=== PATIENT | male | born 1945 | race Caucasian/White ===

== ENCOUNTER 2020-11-06 15:54 | Emergency (ER) | payer OTHER ==
[~2020-11-06] VITALS: Ht 175.3 cm; Wt 81.2 kg
[2020-11-06 17:13] VITALS: BP 138/57
[2020-11-06 17:43] LABS: ABSOLUTE NEUTROPHILS 3.7 thou/uL (1.4-8.2); BASOPHILS 0.3 % (0.0-2.0); EOSINOPHILS 0.6 % (0.0-3.0); HEMATOCRIT 39.4 % (42.0-52.0); HEMOGLOBIN 12.8 gm/dL (14.0-18.0); LYMPHOCYTES 17.5 % (24.0-44.0); MCH 30.7 pg (26.0-34.0); MCHC 32.6 g/dL (28.0-37.0); MCV 94.3 fL (80.0-100.0); MONOCYTES 9.9 % (1.0-8.0); POLYS 71.7 % (36.0-66.0); RBC 4.17 mil/uL (4.50-6.00); RDW 16.7 % (10.5-14.5); WBC 5.1 thou/uL (4.0-11.0)
[2020-11-06 17:54] LABS: ANION GAP 7 mmol/L (7-16); BUN 25 mg/dL (7-18); CALCIUM 8.8 mg/dL (8.5-10.1); CHLORIDE 107 mmol/L (98-107); CO2 29 mmol/L (21-32); CREATININE 0.8 mg/dL (0.7-1.3); GLUCOSE 118 mg/dL (74-106); POTASSIUM 4.1 mmol/L (3.5-5.1); SODIUM 143 mmol/L (136-145)
[2020-11-06 17:58] LABS: ALBUMIN 3.6 g/dL (3.4-5.0); SGOT 15 U/L (15-37); SGPT 17 U/L (16-63); TOTAL BILIRUBIN 0.6 mg/dL (0.2-1.0); TOTAL PROTEIN 6.5 g/dL (6.4-8.2)
[2020-11-06 17:59] LABS: SALICYLATE < 2.8 mg/dL (2.8-20.0)
[2020-11-06 18:06] LABS: INR 1.9; PROTIME 19.8 Seconds (9.3-11.4)
[2020-11-06 18:30] LABS: PLATELET COUNT 106 thou/uL (150-400)
[2020-11-06 18:47] LABS: URINE BILIRUBIN NEGATIVE (Negative); URINE BLOOD NEGATIVE (Negative); URINE CLARITY CLEAR; URINE COLOR YELLOW; URINE GLUCOSE-RANDOM* NEGATIVE (Negative); URINE KETONES NEGATIVE (Negative); URINE LEUKOCYTES-REFLEX NEGATIVE (Negative); URINE NITRITE-REFLEX NEGATIVE (Negative); URINE PROTEIN (DIPSTICK) NEGATIVE (Negative); URINE SPECIFIC GRAVITY 1.015 (1.005-1.035)
[2020-11-06 18:56] LABS: AMP/METHAMP Negative (Negative); BARBITURATES Negative (Negative); BENZODIAZEPINES Negative (Negative); COCAINE Negative (Negative); METHADONE Negative (Negative); OPIATES Negative (Negative); PCP Negative (Negative)
[2020-11-06] MEDS ORDERED: WARFARIN SODIUM5 MG PO (19:53)
[2020-11-06] MEDS ORDERED: ZINC50 MG PO (19:54)
[2020-11-06] MEDS ORDERED: JANTOVEN6 MG PO (19:54)
[2020-11-06] MEDS ORDERED: ACETAMINOPHEN325 MG PO (19:55)
[2020-11-06] MEDS ORDERED: CLONAZEPAM 0.50.5 M1 PO (19:55)
[2020-11-06] MEDS ORDERED: OXYBUTYNIN 5 MG5 M2 PO (20:01)
[2020-11-06] MEDS ORDERED: PROTONIX40 M2 PO (20:02)
[2020-11-06] MEDS ORDERED: RAMIPRIL5 MG PO (20:02)
[2020-11-06] MEDS ORDERED: CARAFATE 1 GM TA1 GM PO (20:03)
[2020-11-06] MEDS ORDERED: TAMSULOSIN HCL0.4 MG PO (20:03)
[2020-11-06] MEDS ORDERED: SILDENAFIL20 MG PO (20:03)
[2020-11-06] MEDS ORDERED: VITAMIN D310 MC2 PO (20:04)
[2020-11-06] MEDS ORDERED: VITAMIN B-1100 M2 PO (20:04)
[2020-11-06] MEDS ORDERED: VITAMIN B122500 MCG PO (20:05)
[2020-11-06] MEDS ORDERED: CRANBERRY450 M2 PO (20:05)
[2020-11-06] MEDS ORDERED: ESCITALOPRAM OXA5 MG PO (20:06)
[2020-11-06] MEDS ORDERED: FOLIC ACID1 MG PO (20:06)
[2020-11-06] MEDS ORDERED: PEPCID40 MG PO (20:06)
[2020-11-06] MEDS ORDERED: NAMENDA 10 MG T10 MG PO (20:07)
[2020-11-06] MEDS ORDERED: MAGNESIUM250 M1 PO (20:07)
--- NOTE | 2020-11-07 06:56 | EKG ---
[address] [place] [address] ELECTROCARDIOGRAM REPORT Name: CORBIN LEVIN Room #: DEP SHWETA Perdue#: [id number] Admission: 11/06/20 Attend Phys: Discharge: 11/06/20 Date of : 43 Report #: [id number] [facility] ED Test Date: 2020-11-06 Test Time: 17:35:04 Pat Name: CORBIN LEVIN Department: Room: Gender: M Programmer Engineering [employer]: : 1945 Requested By: Rocky Bonilla Order Number: [id number] MD: Madhav Robertson Measurements Intervals [place] Rate: 54 P: 36 TX: 206 QRS: -40 QRSD: 98 T: 41 QT: 468 QTc: 444 Interpretive Statements Sinus rhythm Probable left atrial enlargement Abnormal R-wave progression, late transition Inferior infarct, old No previous ECG available for comparison Electronically Signed On 11-07-2020 6:56:02 LEATHER TANNER by Madhav Robertson [email or web address] <ELECTRONICALLY SIGNED> By: Madhav Robertson MD, [facility] 11/07/20 0656 [id number] Madhav Robertson MD, FACC /EPI
== END 2020-11-06 20:26 ==
LOC: ER 15:54
PROVIDERS: Physician Assistant
DX: F91.1 Conduct disorder, childhood-onset type (principal); F03.90 Unspecified dementia, unspecified severity, without behavioral disturbance, psychotic disturbance, mood disturbance, and anxiety; I10 Essential (primary) hypertension; Z79.01 Long term (current) use of anticoagulants; Z79.899 Other long term (current) drug therapy; Z20.822 Contact with and (suspected) exposure to COVID-19

== ENCOUNTER 2020-11-06 20:44 | Inpatient (IN) | payer OTHER ==
[~2020-11-06] VITALS: Ht 175.3 cm; Wt 72.2 kg
[2020-11-06 20:20] VITALS: BP 113/68
[~2020-11-06 20:44] MED LIST: ACETAMINOPHEN325 MG PO; CARAFATE 1 GM TA1 GM PO; CLONAZEPAM 0.50.5 M1 PO; CRANBERRY450 M2 PO; ESCITALOPRAM OXA5 MG PO; FOLIC ACID1 MG PO; JANTOVEN6 MG PO; MAGNESIUM250 M1 PO; NAMENDA 10 MG T10 MG PO; OXYBUTYNIN 5 MG5 M2 PO; PEPCID40 MG PO; PROTONIX40 M2 PO; RAMIPRIL5 MG PO; SILDENAFIL20 MG PO; TAMSULOSIN HCL0.4 MG PO; VITAMIN B-1100 M2 PO; VITAMIN B122500 MCG PO; VITAMIN D310 MC2 PO; WARFARIN SODIUM5 MG PO; ZINC50 MG PO
[2020-11-06 22:50] VITALS: BP 113/68
--- NOTE | 2020-11-07 04:18 | NUR ---
RECEIVED REPORT FROM RAÚL LAMBERT IN ED FOLLOWES VSS, RR EVEN AND NONLABORED ON RA. SECURITY WAS CALLED R/T PT BECOMING COMBATIVE BUT WAS ABLE TO DESLCATE SITUATION. PT ARRIVED 2019 ON UNIT AND RAÚL LAMBERT AND PT WAS REFUSING TO GET OUT OF CHAIR, PT BECAME AGITATED AND ESCLATED TO BEING COMBATIVE, THIS AUTOMATIC MOUNTER WENT TO CALL SECURITY, THEN PETRA EXITED DEPARTMENT. PT DPOA GAVE CONSENTS FOR TREATMENT. HCP CONTACTED AND ORDERS RECEIVED AND ADMIT STAT. ADMIT CONTACTED AND EXPERIMENTAL MECHANIC SPACECRAFT ADVISED. ORDERS ENTERED INTO SYSTEM AND IM DELIVERED WITH SECURITY HOLDING PT. PT SPECH CLEAR BUT WHISPER SOFT, PT BODY LANGUAGE WAS TENSE. PT CONFUSED BUT AAOX1, A LITTLE LATER PT WAS ASSISTED INTO BED AND COVERED WITH BLANKET. VS B/P 113/68, P 56, R 20, T 97.6, 02 SAT96% RR EVEN AND NONLABORED ON RA. LATER RECEIVED REPORT FROM HVAC PROJECT MANAGER THAT PT WAS WET, WHEN TRYING TO ASSIST PT BECAME COMBATIVE, SECURITY CALLED AND HCP CONTACTED AND ORDERS RECEIVED AND ADMIN, PT WET CLOTH WAS REMOVED AND PLACED IN CLEAN CLOTHS. OF NOTE, THIS IS A LIMITED ADMIT R/T COMBATIVE. PT WAS PLACED BACK IN BED. ZERO S/S OF ACUTE DISTRESS NOTED, PT WILL CONTINUE TO BE MONITOR PER [facility] PROTOCOL. PT HAS A HX DEMENTIA, HTN, POLYCYTHEMNA VERA, POLYARTHRALGIA, EXPOSURE TO AENT ORANGE.
[2020-11-07 08:06] VITALS: BP 127/68
--- NOTE | 2020-11-07 10:36 | NUR ---
Nutrition: pt admitted to [facility] unit with major neurocognitive disorder with behaviors. Received new admission consult. Pt is combative and confused. PMH: dementia, HTN, pulmonary HTN, valve replacement. Meds/labs reviewed. No weight hx however BMI is 25.3., overweight status. Diet order entered as NPO, alerted Dr Hernandez and regular diet order placed. Follow intake trends for any needed interventions but consider low nutrition risk at present.
[2020-11-07 20:05] VITALS: BP 137/77
[2020-11-08 02:45] VITALS: BP 137/77
--- NOTE | 2020-11-08 03:00 | NUR ---
ASSUMED CARE ON 11/07/20 @ 1900, UP IN A CHAIR IN THE DAY ROOM. a&oX2 RAMBLING ABOUT MISSIONS, SPEACH DOES NOT MATCH CURRENT EVENTS. TYLENOL 650 PROVIDED FOR BACK AND GENERAL PAIN. COOPERATES WITH ASSESSMENT AND MEDICATION ADMINISTRATION. BED IN LOW POSITION, BED LOCKED, BED ALARM SET, WILL CONTINUE TO MONITOR PER UNIT PROTOCOL FOR SAFETY AND COMFORT.
[2020-11-08 05:41] LABS: INR 1.7; PROTIME 18.1 Seconds (9.3-11.4)
--- NOTE | 2020-11-08 08:55 | NUR ---
PT WANDERING AROUND AFTER THE UNIT AND IN HIS ROOM. PT HAS MEDS IN CUPS AND ENCOURAGED PT TO TAKE MEDS. PT PUT PILLS IN HIS HAND AND WALKING AROUND, PUT MEDS BACK INTO CUP FROM HAND. PUT MEDS UP TO HIS MOUTH AND PT DID TAKE MEDS WITH WATER. VERY DIFFICULT TO GET PT TO FOCUS ON TAKING HIS MED. PT UP AD BENSON WITH STEADY GAIT.
[2020-11-08 09:00] VITALS: BP 141/78
[2020-11-08 10:21] VITALS: BP 141/78
--- NOTE | 2020-11-08 13:00 | NUR ---
PT DOES WALK AROUND THE UNIT AND LIKES TO FOLLOW PEOPLE INTO ROOMS. PT DOES OBSERVE OTHER INDIVIDUALS AND WATCHES THEM. PT CAN BE INTRUSIVE WITH GETTING CLOSE TO OTHERS.
--- NOTE | 2020-11-08 16:48 | NUR ---
ZEESHAN attempted to complete assessment with Pt however Pt unable to participate due to cognitive impairment. Zeeshan contacted Pt DPOA/ son, Porfirio [phone]. ZEESHAN was unable to speak with Porfirio but did leave a message for a call back. As of this note ZEESHAN has not recieved a call from Porfirio. ZEESHAN also reached out to [facility], [phone], both phone numbers went straight to a voice mail. ZEESHAN left a message for a call back. As of this note there has been no return call. ZEESHAN will continue to follow up.
--- NOTE | 2020-11-08 19:00 | NUR ---
PT DID TAKE MED WHOLE WITH WATER. PT ENCOURAGED TO DRINK REST OF WATER IN CUP.
[2020-11-08 20:20] VITALS: BP 141/78
--- NOTE | 2020-11-09 05:09 | NUR ---
PATIENT WAS UP WALKING AROUND IN THE DINING ROOM TONIGHT BEFORE BED. HE WALKS WITH A STEADY GAIT. HE BEGAN MASSAGING ANOTHER PATIENT'S SHOULDERS (FEMALE) AND REFUSED TO STOP OR LEAVE THE PATIENT ALONE. THE PATIENT WAS FEELING UNCOMFORTABLE AROUND HIM. SHE WAS IN A WC AND COULDN'T GET AWAY. PT BECAME COMBATIVE AND VERBALLY THREATENING TO HURT US ALL IF WE DIDN'T LET HIM DO WHAT HE WANTED. SECURITY CALLED AND CAME. GEODON 15MG IM GIVEN TO PATIENT AT 2054. PATIENT WAS ASSISTED TO BED WITHIN THE HOUR. HE WAS INCONTINENT AND HAD TO HAVE BED CHANGED. HE AWOKE AROUND 3AM AND WANTED UP. NURSE WALKED PATIENT THRU THE WHITLOCK AND ASSISTED HIM BACK TO HIS ROOM INTO THE BED. PT WENT BACK TO SLEEP. HE WAS AWAKENED FOR LAB DRAW AND BECAME COMBATIVE AND REFUSING LAB. THIS NURSE ASSISTED WITH THE LAB LADY AND PT WAS BECOMING MORE AGITATED. SUGGESTED THAT LAB COME BACK A LITTLE LATER. SHE STATES SHE WILL BE BACK AROUND 8AM TO RETRY LAB DRAW. PATIENT BACK TO SLEEP. CONTINUING TO MONITOR. BED IN LOW POSITION AND BED ALARM IS ON. NO SIGNS OF SI. DENIES PAIN. ROUTINE ROUNDS TO ASSESS SAFETY AND STATUS OF PATIENT.
[2020-11-09 08:40] VITALS: BP 137/76
[2020-11-09 09:11] LABS: ABSOLUTE NEUTROPHILS 3.9 thou/uL (1.4-8.2); BASOPHILS 0.4 % (0.0-2.0); HEMATOCRIT 44.3 % (42.0-52.0); HEMOGLOBIN 14.5 gm/dL (14.0-18.0); LYMPHOCYTES 14.8 % (24.0-44.0); MCH 31.2 pg (26.0-34.0); MCHC 32.7 g/dL (28.0-37.0); MCV 95.5 fL (80.0-100.0); MONOCYTES 8.9 % (1.0-8.0); PLATELET COUNT 115 thou/uL (150-400); POLYS 74.9 % (36.0-66.0); RBC 4.63 mil/uL (4.50-6.00); RDW 16.7 % (10.5-14.5); WBC 5.2 thou/uL (4.0-11.0)
[2020-11-09 09:16] VITALS: BP 137/76
[2020-11-09 09:35] LABS: INR 1.7; PROTIME 18.1 Seconds (9.3-11.4)
--- NOTE | 2020-11-09 10:00 | NUR ---
PT FINISHED BREAKFAST. HARD TO UNDERSTAND PT DUE TO WORD SALAD. PT SEEMS TO KNOW WHAT HE IS SAYING. PT TOOK MEDS WHOLE WITH WATER. PT LIKES TO HOLD PILLS IN HAND AND WALK AWAY. PT WANDERS AROUND UNIT AND LIKES TO FOLLOW OTHER WORKERS AND INVADE OTHERS SPACE.
--- NOTE | 2020-11-09 12:37 | NUR ---
PT NOT FOLLOWING DIRECTIONS FROM STAFF AND NEEDS REDIRECTED AWAY FROM OTHER PATIENTS, PT GETTING INCREASED AGITATED WITH REDIRECTION. TOOK PT TO ROOM WITH X2 OTHER STAFF AND ENCOURAGED PT TO SIT ON BED. PT ACCEPTED INJECTION OF GEODON 15MG IM TO RT DELTOID, PT ALSO HAS BRUISE TO RT UPPER ARM.
--- NOTE | 2020-11-09 13:30 | NUR ---
PT INCON OF URINE AND NEEDED CHANGED. PT ACCEPTED STAFF X2 TO ASSIST WITH CHANGING OF PANTS AND BRIEF.
--- NOTE | 2020-11-09 18:50 | NUR ---
PT ENCOURAGED TO SIT IN CHAIR. PT STATED HE IS GETTING TIRED, PT DID SIT IN CHAIR NEXT TO ANOTHER PATIENT. NO AGRESSION SEEN FROM PT TODAY JUST BEING INTRUSIVE AND NOT WANTING TO FOLLOW DIRECTION.
[2020-11-09 22:26] VITALS: BP 156/107
[2020-11-09 23:31] VITALS: BP 156/107
--- NOTE | 2020-11-10 01:15 | NUR ---
Assumed care on 11/09/20 @ 1900, ambulating throughout the mileu, intruding into other peer's personal space, changing chairs, over the bed tables etc. Also taking off peer's socks. Goes into peers rooms. When EVS was on the floor mopping, wouldn't leave the mop bucket alone, became agitated when redirected away from the bucket. Refused meds whole, offered a second time crushed in pudding and he accepted the crushed meds in pudding, then ate the rest of the pudding. @ 0030 became increasingly agitated, disturbing the other patients Given Geodon 15mg IM, within about 30 minutes was able to direct him to his room. Cleaned a scab on his forehead that he had picked and was bleeding, covered with bandaid. Laid down and is sleeping at this writing. Bed in low position, bed alarm set, will continue to monitor for safety and comfort.
[2020-11-10 08:00] VITALS: BP 122/76
[2020-11-10 11:31] VITALS: BP 122/76
--- NOTE | 2020-11-10 17:26 | NUR ---
Alert and confused. incooperative, irriatable. inappropriate behaviors towards other patients, especially towards female patients. does not follow staff's demands to leave other patients alone, security came to assist the staff to give IM Ziprasidone twice, that works. refused to eat for breakfast and lunch, took PO medication with some puddings. but finished 100% of dinner. Walking around the hallway now,will keep monitoring.
[2020-11-10 18:42] LABS: PROTIME 26.9 Seconds (9.3-11.4)
[2020-11-10 18:43] LABS: INR 2.6
[2020-11-10 19:49] VITALS: BP 142/86
[2020-11-11 05:46] LABS: INR 3.1; PROTIME 32.4 Seconds (9.3-11.4)
[2020-11-11 11:45] VITALS: BP 142/65
[2020-11-11 18:21] VITALS: BP 142/65
--- NOTE | 2020-11-11 18:27 | NUR ---
ASSUMED CARE AT 0700 TODAY. PT. STABLE. HE CONTINUES TO BE EXTREMELY CONFUSED, REQUIRING MUCH ATTENTION OF STAFF. HE WANDERS AIMLESSLY AROUND THE UNIT, SOME TIME NOT ANSWERING TO HIS OWN NAME. HE WAS NOTED TO BE HOLDINGING ONTO THE WALL BETWEEN THE DINING ROOM AND THE WHITLOCK FOR QUITE A PERIOD OF TIME TODAY (AT LEAST 35 MINUTES). HE HAS, HOWEVER, BEEN REDIRECTABLE. HE HAS NOT REQUIRED ANY PRN'S TODAY. HE IS EATING FAIR WITH ASSISTANCE OF STAFF. HE HAS TAKEN HIS MEDICATIONS CRUSHED IN PUDDING TODAY WITHOUT PROBLEMS NOTED. WILL CONTINUE TO MONITOR.
[2020-11-11 20:02] VITALS: BP 128/79
[2020-11-12 01:36] VITALS: BP 128/79
[2020-11-12 07:00] VITALS: BP 98/60
--- NOTE | 2020-11-12 07:51 | NUR ---
Assumed care on 11/11/20, ambulating ad dayami throughout the unit, intrusive and exit seeking. a&ox1-2, takes meds whole or crushed in applesauce. Geodon 15mg IM provided for combatitive episode and rough handling peers and staff @ 23:05. x3 staff and x2 security assisted.
--- NOTE | 2020-11-12 07:56 | NUR ---
AFSANEH Sharpe 15mg IM provided on 11/12/20 @ 0600, D/T wanda agitated and striking the Vehicle Refinisher trying to draw his PT/INR lab. Lab will attempt once patient becomes calm and cooperative.
[2020-11-12 09:10] LABS: INR 4.1; PROTIME 41.3 Seconds (9.3-11.4)
--- NOTE | 2020-11-12 15:13 | NUR ---
11/11 @ 1600 SW recieved a VM from Pt's , Chyna, requesting a call back. @1704 SW returned to call to Chyna, . Chyna stated she had some concerns about not hearing from anyone at the hospital. LAZARO explained that a call was made to Porfirio, Pt's son on 11/08 and a message was left but had not recieved a call back. LAZARO also informed that it was instructed to contact Porfirio. Chyna stated that was not correct and that she should be contacted as she is the DPOA. LAZARO will pass information to other team members. LAZARO begin to provide and update on the Pt when Chyna's phone disconnected. LAZARO attempted to call back with no sucess. LAZARO will follow up
--- NOTE | 2020-11-12 18:08 | NUR ---
ZEESHAN called Chyna to follow up. Zeeshan set up a family meeting for 11/13/2020 @ 1770. ZEESHAN also emailed welcome packect to [email or web address]
--- NOTE | 2020-11-12 18:20 | NUR ---
Alert to name only. Very sleepy today, spent most of day in gerichair. No speech/behavior suggestive of SI/HI. Compliant with meds given in apple sauce. Breath sounds clear. Reg HR with click auscultated. Color pink with brisk capillary refill and palpable peripheral pulses. Incontinent of yellow urine. Active bowel sounds over soft, rounded abdomen.
[2020-11-12 19:59] VITALS: BP 129/78
[2020-11-13 00:14] VITALS: BP 129/78
--- NOTE | 2020-11-13 02:12 | NUR ---
Assumed care on 11/12/20 @ 1900, A&Ox1 to person only. Seated in tate chair in the hallway adjacent to the nurses desk. Speaks out but does not speak in sentences, word salad speach patterns noted. Cooperated and took meds crushed in applesauce with water. Retired to bed x2 assist @ HS, and has been sleeping in bed with the bed alarm set, bed in low position. Rounding as per unit protocol. High fall risk, NKDA, DNR. Has not required PRN meds this evening.
[2020-11-13 05:54] LABS: HEMATOCRIT 41.8 % (42.0-52.0); HEMOGLOBIN 13.6 gm/dL (14.0-18.0); MCH 31.2 pg (26.0-34.0); MCHC 32.5 g/dL (28.0-37.0); RBC 4.36 mil/uL (4.50-6.00); RDW 17.1 % (10.5-14.5); WBC 5.4 thou/uL (4.0-11.0)
[2020-11-13 05:56] LABS: INR 4.3
[2020-11-13 10:12] VITALS: BP 113/76
--- NOTE | 2020-11-13 11:45 | NUR ---
Nutrition followup: pt remains on [facility] unit with major neurocognitive disorder with behaviors. No weight since admit. Pt not appropriate for interview. Speaks in word salad. Noted needed IM injections last night due to behaviors. Pt was eating 100% meals til 11/09 then po started varying from refusal to 100%. Family meeting today with planned D/C soon per Dr Hernandez. Will offer ensure once a day due to some meal refusals lately. REC obtain new weight. Continue as low nutrition risk for now and follow for improved po trends.
--- NOTE | 2020-11-13 13:08 | NUR ---
ZEESHAN and Dr. Velez participated in a phone call with Pt's , Chyna. An update was given, medications discussed, and discharge discussed. Zeeshan will fax updates to the facility. ZEESHAN will continue to follow
--- NOTE | 2020-11-13 19:38 | NUR ---
0700 ASSUMED CARE OF PATIENT, PATIENT IN DAYROOM AT THAT TIME. PATIENT SITTING IN FARTUN CHAIR QUIETLY. SOME ASSISTANCE WITH BREAKFAST. MEDICATIONS TAKEN WHOLE WITHOUT DIFFICULTY. PATIENT IN GERICHAIR WITH LAP SAM FASTENED IN FRONT. 1400 PATIENT HAS SOME INCREASE IN AGITATION. PATIENT UP WALKING AND WANDERING WHITLOCK. PO MEDICATION GIVEN FOR AGITATION CRUSHED IN APPLESAUCE. CONTINUES TO WANDER WHITLOCK WITH STEADY GAIT. BS ACTIVE, LS CLEAR. REPORT GIVEN TO ONCOMING SHIFT.
[2020-11-13 19:39] VITALS: BP 118/66
--- NOTE | 2020-11-14 03:03 | NUR ---
PACING IN HALLWAYS AND DAYROOM UPON INITIAL ASSESSMENT THIS PM AT 1945. INTRUSIVE-ENTERING PEERS ROOMS AND ATTEMPTING TO GET INTO OFFICES,STAFF BATHROOM ETC. DIFFICULT TO REDIRECT WILL NOT FOLLOW VERBAL COMMNANDS AND BECOMES AGITATED AND COMBATIVE WHEN STAFF ATTEMPTS TO TAKE HIS HAND OR ELBOW AND PHYSICALLY DIRECT. INITALLY RESISTVE WITH TAKING HS MEDS-REFUSING TO OPEN MOUTH-DID TAKE MEDS IN ICE CREAM WHEN REAPPROACHED LATER. AT APPROX. 2230 BECAME INTRUSIVE WITH A FEMALE PEER AND WHEN STAFF ATTEMPTED TO REDIRECT ATTEMPTED TO HIT HER WITH A CLOSED FIST AND WHEN 2ND STAFF APPROACHED WAS ATTEMPTING TO KICK AND HIT HER. IS MILDLY ATAXIC FROM HS MEDICATION BUT REFUSES TO SIT -MOVING TABLES AND CHAIR IN DAYROOM. ZYPREXA 7.5MG IM IN RIGHT DELTOID FOR ABOVE NOTED. APPEARS TO REST QUIETLY AT APPROX. 2300.PLACED IN GERICHAIR WITH LAP BELT SECURED IN FRONT AT APPROX. 2330.
--- NOTE | 2020-11-14 08:21 | NUR ---
RT Progress Note- Cristobal's participation in the milieu and recreation therapy groups is inconsistent. Cristobal primarily benefit's from sensory activity such as music groups and has been present during each group, but minimally engaged. He has not displayed any aggression during group time's, however he has required gentle redirection as he begins to wander at times and become instrusive of other patient's space. SHIPPING ROOM HELPER will continue to provide Cristobal with engaging activities on the unit.
[2020-11-14 09:06] LABS: INR 3.1; PROTIME 31.8 Seconds (9.3-11.4)
[2020-11-14 09:26] VITALS: BP 118/72
--- NOTE | 2020-11-14 14:11 | NUR ---
0700 ASSUMED CARE OF PATIENT, PATIENT AWAKE IN DAYROOM SITTING IN FARTUN CHAIR. PATIENT ASLEEP DURING BREAKFAST, 0900 MED NOT TAKEN AT THAT TIME PATIENT CONTINUES TO SLEEP AND WILL NOT WAKE UP FOR ASSOCIATE PROFESSOR OF COMMUNICATION. PATIENT GIVEN MEDS AT 0955 IN APPLESAUCE WITHOUT DIFFICULTY. SLEEPS IN CHAIR OFF AND ON. VS BP-118/72 P-74 R-20 T-98.0 SATS 90%. SATS RECHECKED 93% WILL CONTINUE TO OBSERVE.
[2020-11-14 19:52] VITALS: BP 125/76
--- NOTE | 2020-11-15 04:05 | NUR ---
INCONTINENT OF LARGE AMOUNT URINE-REQUIRED 4 STAFF TO CHANGE BRIEF,CLOTHING ,CLEAN CHAIR AND APPLY BARRIER CREAM SKIN PROTECTANT-YELLING OBSCENITIES AT STAFF AND ATTEMPTING TO HIT,KICK AND BITE THROUGHOUT INCONTINENT CARE.NO RESPONSE TO ATTEMPTS TO PROVIDE REASSURANCE,REORIENTATION OR REDIRECTION -SPIT IN NURSES FACE YELLING LOUDLY "GET AWAY FROM ME YOU GODDAMM WHORE"SOME SLIGHT REDNESS TO SCROTUM OTHERWISE SKIN APPEARS INTACT-NO OPEN AREAS.REPOSITIONED IN GERICHAIR-FLUIDS/SNACK PROVIDED.REMAINS RESTLESS IN CHAIR-WILL CONTINUE TO MONITOR ROSLYN.
[2020-11-15 09:00] VITALS: BP 136/72
[2020-11-15 09:40] VITALS: BP 136/72
--- NOTE | 2020-11-15 14:27 | NUR ---
Alert to name only. Denies SI/HI, no speech/behavior suggestive of SI/HI. Drowsy this AM but able to stand briefly. Currently ambulating around unit with assistance of of 2 relationship executive. Confused speech. When asked about pain he said yes but then had rambling, incoherent speech. Breath sounds clear. Reg HR auscultated. Color pink with brisk capillary refill and palpable peripheral pulses. Slight edema in ankles. Incontinent of large amt yellow urine per brief. Active bowel sounds over soft, rounded abdomen. Sat quietly in chair most of am, now ambulating in day room.
--- NOTE | 2020-11-15 20:27 | NUR ---
PT HAS BEEN WANDERING AROUND DINING ROOM AND SITTING ON HIS OWN IN CHAIRS. PT NEEDED ASSISTANCE WITH CHANGING PANTS/BRIEF. TAKES X2 PERSONS TO CHANGE, HE WANTS TO KEEP PULLING UP HIS PANTS. PT ALLOWED THIS INNOVATION ANALYST AND ANOTHER STAFF TO ASSIST WITH HIS PANTS. PT THEN WHEELED OUT VIA FARTUN-CHAIR IN DINING ROOM. PT TOOK MEDS WITHOUT ANY ISSUES CRUSHED TO CHOCOLATE PUDDING.
[2020-11-15 20:30] VITALS: BP 95/62
[2020-11-15 20:45] VITALS: BP 95/62
--- NOTE | 2020-11-16 04:52 | NUR ---
PT RESTING IN RECLINER CHAIR IN DINING ROOM. PT HAS NOT HAD ANY BEHAVIORS THIS SHIFT. PT ALLOWED STAFF TO CHANGE HIS BRIEF TONIGHT WITHOUT ANY ISSUES.
[2020-11-16 08:25] VITALS: BP 111/75
--- NOTE | 2020-11-16 18:33 | NUR ---
Alert and orientated to name only. Calm and compliant, took meds with apple sauce. Sat majority of day in tate chair. Able to stand with assistance, gait unsteady. Breath sounds clear. Reg HR auscultated. Color pink with brisk capillary refill and palpable peripheral pulses. Minimal edema in lower extremities. Incontinent of very large amt yellow urine. Active bowel sounds over soft, rounded abdomen. Currently sitting in day room with peers. No s/o distress.
[2020-11-16 19:59] VITALS: BP 113/70
[2020-11-16 20:10] VITALS: BP 113/70
--- NOTE | 2020-11-16 21:31 | NUR ---
PT SITTING OUT IN DINING ROOM IN FARTUN CHAIR. PT WITHDRAWN AND TO SELF. PT WILL CONVERSE WHEN SPOKEN TOO. PT NOT MAKING ANY SENCE WITH SENTANCES, WORD SALAD. PT DENIES ANY PAIN. PT TOOK MEDS CRUSHED IN PUDDING. PT DID LIKE THE PUDDING OFFERED WATER TO DRINK. PT KEEPS HEAD DOWN MOST OF THE TIME.
--- NOTE | 2020-11-17 03:25 | NUR ---
PT TOLERATED LAB DRAW AT THIS TIME. PT RESTING IN FARTUN-CHAIR, PT DIDN'T WAKE DURING IV STICK.
[2020-11-17 04:13] LABS: PROTIME 30.7 Seconds (9.3-11.4)
[2020-11-17 09:51] VITALS: BP 122/83
[2020-11-17 10:30] VITALS: BP 122/83
--- NOTE | 2020-11-17 10:37 | NUR ---
ASSUMED CARE OF PT. AT 0700 THIS MORNING. HE WAS COOPERATIVE WITH TAKING HIS MEDICATIONS. HE ATE SOME OF HIS BREAKFAST. NO AGRESSION NOTED FROM HIS TO THIS MOMENT IN TIME.
[2020-11-17 20:04] VITALS: BP 96/57
[2020-11-17 20:10] VITALS: BP 96/57
--- NOTE | 2020-11-18 04:06 | NUR ---
PATIENT WAS UP WALKING AROUND DINING ROOM THIS EVENING AND BEING HEAVILY WATCHED. HE SPOKE NONSENSICAL RAMBLINGS BUT SEEMED TO RELATE TO PAST WORK HE MAY HAVE DONE. HE WAS EASILY REDIRECTED. HE WAS NOT COMBATIVE TONIGHT WITH INCONTINENT CARES ME AND THE PROTEIN SPECIALIST WORKED WITH HIM SLOWLY AND ALLOWED HIM TO DO WHAT HE COULD TO HELP. WE EXPLAINED TO HIM STEP BY STEP WHAT WE WERE DOING AND CARRIED ON A CONVERSATION WITH HIM TO KEEP HIS MIND OFF OF THE SITUATION. PT HAS BEEN SLEEPING IN HIS BED SINCE. NO BEHAVIORS. ROUTINE ROUNDS TO ASSESS STATUS AND SAFETY OF PATIENT. HE DENIES PAIN. NO SIGNS OF SI/HI. HE DOES HAVE VISUAL HALLUCINATIONS AND SEE'S THINGS ON THE FLOOR THAT HE CALLS CLIFFS OR RIDGES AND ATTEMPTS TO GO AROUND OR STEP OVER THEM. HE HAD A CUP TONIGHT AND WAS HOLDING I UP UNDERNEATH A TABLE IF WATER WAS RUNNING INTO IT. PATIENT TOOK HIS MEDS CRUSHED IN PUDDING TONIGHT. BED IN LOW POSITION AND BED ALARM IS ON.
[2020-11-18 05:39] LABS: INR 2.7; PROTIME 27.9 Seconds (9.3-11.4)
[2020-11-18 10:37] VITALS: BP 94/54
--- NOTE | 2020-11-18 17:31 | NUR ---
LAZARO spoke Steffi on several occassions concerning discharge planning for the Pt. @11:36 am LAZARO spoke with Steffi and planned d/c for 11/19/2020 @ 1300. LAZARO then called Pt's , Chyna, concerning the matter. Chyna stated she would not be avaliable to transport the Pt and asked if Pt could be d/c today. 11:50am Lazaro spoke with Steffi concerning d/c today Steffi informed the facility did not have the nursing staff to accept the Pt today. LAZARO relayed this information to Chyna. Chyna stated she could pick the Pt up on 11/19/2020 @ 11am to make it to [facility] by noon. LAZARO stated she would confirm this time was okay withthe facility. LAZARO spoke with Steffi about the time, Steffi stated she would have to check with her director but believed the 11am time would be okay. Steffi stated she would call SW back in the evening to confirm. @170 LAZARO recieved a call from Steffi and Gustavo John, . IN this phone call Gustavo stated that due to the safety of other residence they would not be accepting the Pt back to [facility]. However they have sent referrals to [facility] and another facility in which they are waiting on a decision. Gustavo went on to state they felt the Pt needed an all male unit. LAZARO was suprised by this information due to [facility] not communicating there intent to not accept the Pt back at anytime while Pt has been on [facility]. LAZARO stated the importance of communication from the facility with [facility] concerning the Pt's care. LAZARO will continue to follow up.
--- NOTE | 2020-11-18 18:34 | NUR ---
PHARMACY CALLED X3 RE COUMADIN BOT BEING AVAILABLE FOR ADMINISTRATION-TO LIFT X3 -WILL REPORT TO ONCOMING SHIFT
--- NOTE | 2020-11-18 18:37 | NUR ---
HAS BEEN UP AND AMBULATING ON UNIT-CONTINUES TO BE INTRUSIVE ENTERING OTHERS ROOM AND ATTEMPTING TO TOUCH THEM OR ASSIST THEM IN SOME WAY IS M,ORE DIRECTABLE TODAY -ALSAO NOTED TO HAVE INCREASED APPETITE EATING 100 PERCENT MEALS PROVIDED AND REQUESTING MORE. INCREASE IN SPONTANEOUS CONVERSATION AND EXPRESSION
[2020-11-18 19:36] VITALS: BP 90/63
[2020-11-18 20:20] VITALS: BP 90/63
--- NOTE | 2020-11-19 04:14 | NUR ---
PATIENT UP WALKING AROUND UNIT [facility]. HE HAS BEEN COOPERATIVE FOR MOST PART BUT WAS PICKING UP ITEMS OF OTHER PEOPLE'S AND MOVING THEM AROUND AND CARRYING THEM. EXAMPLE: HE TOOK BLANKET OFF SLEEPING PATIENT IN DINING ROOM AND CARRIED IT ACCROSS THE ROOM AND LAID IT DOWN. HE TOOK ANOTHER SLEEPING RESIDENT'S GLASSESS THAT WERE SITTING BESIDE HER WHILE SHE WAS SLEEPING ON THE COUCH. HE DID TAKE HIS MEDS CRUSHED IN ICECREAM. INCLUDED TRAZADONE 100MG PO WITH HS MEDS. PATIENT WOULD NOT SIT ON CHAIR ALARM PAD. HE KEPT PICKING IT UP OR TRYING TO PULL THE CORD OFF OR TRYING TO STAND UP TO REMOVE IT FROM UNDER HIM. COMBATIVE WITH INCONTINENCE CARES. BECAME MORE RESTLESS AND IRRITABLE EVENING WENT ON AND OLANZAPINE 7.5MG IM GIVEN TO PATIENT AT 2329. PATIENT WAS ASSISTED TO BED WITHIN THE HOUR. HE WAS CURSING AND AGITATED. THIS NURSE SAT WITH HIM IN THE ROOM UNTIL HE FELL ASLEEP. BED IN LOW POSITION AND BED ALARM ON. SIDERAILS UP FOR SAFETY D/T SEDATION FROM MEDS. ROUTINE ROUNDING TO ASSESS SAFETY AND STATUS OF PATIENT.
[2020-11-19 07:55] VITALS: BP 80/53
[2020-11-19 08:30] VITALS: BP 100/60
--- NOTE | 2020-11-19 08:50 | NUR ---
PT FEEDING SELF BREAKFAST AND DRINKING WATER. PT SEEMS GROGGY THIS AM. PT DID TAKE MED WHOLE WITH WATER. PT HAS BRUISES TO ARMS BILATERLY. PT BP RECHECKED MANUALLY AND BP WAS 100/60. PT TOLERATED MANUAL BP.
[2020-11-19 09:07] VITALS: BP 100/60
--- NOTE | 2020-11-19 14:00 | NUR ---
PT UP WALKING AROUND UNIT. PT TALKING TO STAFF AND UNABLE TO CARRY ON A CONVERSATION THAT MAKES SENCE. PT SEEMS PLEASANT AND IN A GOOD MOOD. PT SEEMS TO LIKE TO HELP OTHERS.
--- NOTE | 2020-11-19 17:38 | NUR ---
LAZARO recieved and email from Blas at [facility]. In the email Donnell [facility] to follow up
[2020-11-19 21:40] VITALS: BP 108/64
--- NOTE | 2020-11-20 05:00 | NUR ---
11-19-20 CARE TRANSFERED 1900 OBSERVED PT WALKING IN HALLWAY. PAINT MIXER REPORTED THAT PT REFUSED VS. LATER PT AAOX1, VS B/P 108/64, P 91, R 16, T 97.5. RR EVEN AND NONLABORED ON RA. PT HAS REMAINED CALM AND COOPERATIVE. ZERO S/S OF ACUTE DISTRESS NOTED, PT WILL CONTINUE TO BE MONITOR PER [facility] PROTOCOL.
[2020-11-20 09:23] VITALS: BP 96/62
[2020-11-20 11:08] LABS: HEMATOCRIT 40.5 % (42.0-52.0); HEMOGLOBIN 13.2 gm/dL (14.0-18.0); MCH 31.2 pg (26.0-34.0); MCHC 32.5 g/dL (28.0-37.0); MCV 95.8 fL (80.0-100.0); RBC 4.23 mil/uL (4.50-6.00); RDW 16.3 % (10.5-14.5); WBC 4.9 thou/uL (4.0-11.0)
[2020-11-20 11:18] LABS: CALCIUM 9.2 mg/dL (8.5-10.1); CREATININE 0.8 mg/dL (0.7-1.3); MAGNESIUM 2.1 mg/dL (1.8-2.4); POTASSIUM 3.7 mmol/L (3.5-5.1)
[2020-11-20 12:26] LABS: INR 1.7; PROTIME 18.5 Seconds (9.3-11.4)
--- NOTE | 2020-11-20 13:16 | NUR ---
Assumed care AM. ORIENTED TO SELF. TOOK MEDICATION CRUSHED WITH PUDDING. aSSESSMENTS COMPLETED,VSS. CALM AND CO-OPERATIVE. AMBULATES WITH A STEADY GAIT. dENIES SI/HI. DENIES PAIN. At this time pt is in the day room watching TV. no sign of acute distress noted. will continue to monitor
--- NOTE | 2020-11-20 15:48 | NUR ---
RT Progress Note- Cristobal has shown no change in level of participation or behaviors in group therapy. Cristobal continues to benefit from sensory based activities--music, aromatherapy. Cristobal has not interrupted group with wandering or restlessness this since previous review note. IOS SOFTWARE ENGINEER will continue to encourage Cristobal's participation and positive behaviors.
[2020-11-20 19:30] VITALS: BP 121/79
--- NOTE | 2020-11-20 19:56 | NUR ---
Assumed care on 11/20/20 @ 1900, ambulating ad dayami, getting in other patient's space. Will continue to monitor for safety and comfort as per unit protocol.
[2020-11-20 23:10] VITALS: BP 121/79
[2020-11-21 08:30] VITALS: BP 128/63
--- NOTE | 2020-11-21 08:38 | NUR ---
PT SITTING IN DINING ROOM THIS AM EATING BREAKFAST. PT ABLE TO FEED SELF AT THIS TIME. PT TOOK MEDS CRUSHED DUE TO NOT BEING ABLE TO LIFT HEAD UP, PT HEAD DOWN. PT TALKING ABOUT WORK RELATED ISSUES OF MEASURING ITEMS, NOT ABLE TO HAVE CONVERSATION FLUENTLY.
[2020-11-21 09:48] VITALS: BP 128/63
[2020-11-21 10:15] LABS: INR 1.7; PROTIME 18.2 Seconds (9.3-11.4)
--- NOTE | 2020-11-21 19:10 | NUR ---
PT DIDN'T LIKE TO HAVE SQ SHOT OF LOVENOX, NEEDED ASSISTANCE FROM STAFF TO ASSIST WITH SQ INJECTION. NOTICED WITH GIVING PT MEDS WHOLE OR WHOLE WITH PUDDING PT WOULD TAKE MED OUT OF MOUTH AND PUT ON FLOOR BESIDE HIM. PT NOT ABLE TO UNDERSTAND ABOUT TAKING HIS MEDICATION. HAD TO CRUSH MEDS AND PUT IN PUDDING FOR PT TO TAKE THEM THIS MERNA. PT TALKING ABOUT WORK RELATED ISSUES THAT MAKES SENCE TO HIM.
[2020-11-21 19:15] VITALS: BP 107/60
[2020-11-21 19:30] VITALS: BP 107/60
[2020-11-22 08:00] VITALS: BP 115/71
--- NOTE | 2020-11-22 08:10 | NUR ---
PT UP THIS AM AND WAS FEEDING SELF. PT NEEDS MEDS CRUSHED DUE TO SPITTING OUT WHOLE MEDS IF NOTICING IN MOUTH SUCH WHOLE MED IN PUDDING. PT TOOK MEDS WITH BREAKFAST. PT DENIES ANY PAIN. PT UP OUT OF FARTUN-CHAIR AT THIS TIME WITH STEADY GAIT.
[2020-11-22 10:50] VITALS: BP 115/71
--- NOTE | 2020-11-22 13:30 | NUR ---
PT INCON. OF URINE AND NEEDING CHANGED. PT NEEDED TO BE TAKEN TO ROOM BY THIS MOLD BURNER. PT FOLLOWED UNTIL FRONT OF HIS DOOR STOPPED. PT DID GO INTO ROOM. PT DOESN'T LIKE TO HAVE PANTS CHANGED. PT RAISED FIST TO AIDE WHEN SITTING ON BED THIS MOLD BURNER HAD TO HOLD HIS HANDS FOR CHANGE. PT CURSING TO AIDE ALSO. ONCE PANTS AND BRIEF OFF AND PANTS AND BRIEF ON, PT WAS ABLE TO PULL UP PANTS ON OWN.
--- NOTE | 2020-11-22 14:58 | NUR ---
PT IS GOING AROUND TOUCHING PEOPLE AND RAISING HIS FIST TO OTHERS. PT HARD TO REDIRECT AT THIS TIME AND STAFF ARE ASKING FOR SOMETHING TO CALM HIM DOWN. THERE IS MUSIC PLAYING IN THE DINING ROOM AT THIS TIME ALSO. DR. PRITCHARD IS TAKING HIM OUT OF DINING ROOM.
[2020-11-22 15:48] LABS: INR 1.6; PROTIME 16.8 Seconds (9.3-11.4)
--- NOTE | 2020-11-22 16:03 | NUR ---
LAZARO Was able to talk to Oleg at [facility] he did state that they are willing to accept the Pt into the facility. Oleg was waiting for the family to agree to the placement. LAZARO was able to speak with The Pt's , Chyna, @1600. Chyna stated they have confirmed the placement with [facility]. hCyna stated they will be ready to pick the Pt up on Wednesday. D/C to [facility] scheduled for 11/25/2020 @ 10am. The family will transport
--- NOTE | 2020-11-22 16:26 | NUR ---
PT WAS AT NURSING DOOR AND PUT FOOT TO KEEP DOOR OPEN. PT TOLD TO GET BACK FROM THE DOOR. PT HAD CLOSED FIST AND HIT DOOR. ADM ZYPREXIA 5MG PO FOR AGITATION.
--- NOTE | 2020-11-22 17:11 | NUR ---
PT NEEDED DIRECTED TO DINING ROOM. PT TALKING ABOUT MEASUREMENTS AND ASKING THIS SALES REPRESENTATIVE SALES MANAGER MATH QUESTIONS ON CERTAIN MEASUREMENTS. PT WAS MEASURING WINDOWS AROUND NURSES STATION. PT SEEMS CALMER AND SLEEPY. PT DID SIT IN DINING ROOM TO EAT DINNER.
[2020-11-22 19:38] VITALS: BP 112/57
--- NOTE | 2020-11-23 04:58 | NUR ---
Pt. did rest quietly at intervals during the night. He spent most of the evening roaming around in the dayroom. Can get agitated at times with direct care.
[2020-11-23 06:20] LABS: INR 1.5; PROTIME 15.7 Seconds (9.3-11.4)
[2020-11-23 09:17] VITALS: BP 113/78
--- NOTE | 2020-11-23 16:13 | NUR ---
PT BECAME VERY AGITATED AND WAS MEDICATED WITH PRN ZYPREXA IM AROUND 1450 WITH FAIRLY GOOD RESULTS..
[2020-11-23 19:18] VITALS: BP 143/74
--- NOTE | 2020-11-24 05:28 | NUR ---
11-23-18 CARE TRANSFERRED 1900 OBSERVED PT WALKING AROUND IN DAY ROOM. PT AAOX1, VSS, RR EVEN AND NONLABORED ON RA. PT DENIES PAIN AND SI/HI AND OBSERVED NO SI/HI BEHAVIORS. PT HAS BEEN EASILY REDIRECTED. DURING MEDICATION PT HAD NO DIFFICULTIES TAKING MEDICATION WHOLE WITH WATER. ZERO S/S OF ACUTE DISTRESS NOTED, PT WILL CONTINUE TO BE MONITOR PER [facility] PROTOCOL.
[2020-11-24 08:27] VITALS: BP 110/63
--- NOTE | 2020-11-24 12:21 | NUR ---
Assumed pt care at 0700. unable to assess if pt is alert and oriented. Assessments completed and vss. pt took his medication crushed, no difficulty noted. pt ambulates with steady gait. occasionally wanders the unit. pt was confused to answer the si/hi question. no sign of si/hi noted. no c/o pain or sign of acute distress noted upon assessments. At 1120 bladder scan DONE, PT had 264ML . pt was straight CATH per DR SHAH ORDER. 300ML WAS THE OUTPUT. PT IS CURRENTLY EATING LUNCH IN THE DINNING ROOM. WILL CONTINUE TO MONITOR.
[2020-11-24 14:22] LABS: INR 1.4; PROTIME 14.6 Seconds (9.3-11.4)
--- NOTE | 2020-11-24 14:31 | NUR ---
LAZARO faxed updates to [facility]. LAZARO team will continue to follow.
[2020-11-24 20:00] VITALS: BP 117/52
--- NOTE | 2020-11-25 03:52 | NUR ---
11-24-20 CARE TRANSFERRED 1899 OBSERVED PT WALKING IN DAY ROOM. LATER PT AAOX1, VSS, RR EVEN AND NONLABORED ON RA. PT DENIES PAIN. OBSERVED NO SI/HI BEHAVIORS. PT IS EVERY INTERACTIVE IN COMMUNICATION AND OFTEN IS WORD SALAD. PT HAS BEEN EASILY REDIRECTED WHEN WANDERING INTO WRONG PT ROOM, PT PRESENTS WITH CONFUSION BUT HAS REMAINED CALM AND COOPERATIVE. ZERO S/S OF ACUTE DISTRESS NOTED, PT WILL CONTINUE TO BE MONITOR PER [facility] PROTOCOL.
[2020-11-25 05:43] LABS: INR 1.4; PROTIME 14.9 Seconds (9.3-11.4)
[2020-11-25] MEDS ORDERED: ENOXAPARIN80 MG/0.1 SUBQ (08:42)
[2020-11-25] MEDS ORDERED: OLANZAPINE ODT5 MG PO ×3 (08:43)
[2020-11-25] MEDS ORDERED: WARFARIN SODIUM2 MG PO (08:45)
[2020-11-25] MEDS ORDERED: FINASTERIDE5 MG PO (08:45)
--- NOTE | 2020-11-25 11:26 | NUR ---
Assumed pt care at 0700. pt was oriented to self. Assessments completed, vss. took meds crushed in yogurt, no difficulty noted. ambulates with steady gait. denies si/hi. no c/o of pain. At 1030 pt was D/C to [facility]. pt was d/C with D/C instruction, D/C summary, prescription scripts, and his belongings. telegraphic typewriter operator chief and MANAGER PROCESS IMPROVEMENT picked up pt belonging at the security. pt was transported to the ER exit entrance via w/c. pt was assisted to the car. d/c instructions given to . Report was called to [facility]. Nurse Matias was given report at 1050.
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
== END 2020-11-25 10:30 | DRG 57 ==
LOC: SBH 20:44
PROVIDERS: Hospitalist; Internal Medicine; Nurse Practitioner Psychiatric/Mental Health; Psychiatry & Neurology Psychiatry; ADMIT Psychiatry & Neurology Psychiatry; ATTEND Psychiatry & Neurology Psychiatry
DX: G30.9 Alzheimer's disease, unspecified (principal); F02.81 Dementia in other diseases classified elsewhere, unspecified severity, with behavioral disturbance; F01.51 Vascular dementia, unspecified severity, with behavioral disturbance; I10 Essential (primary) hypertension; N40.0 Benign prostatic hyperplasia without lower urinary tract symptoms; I27.20 Pulmonary hypertension, unspecified; K21.9 Gastro-esophageal reflux disease without esophagitis; D69.6 Thrombocytopenia, unspecified; D64.9 Anemia, unspecified; Z66 Do not resuscitate; Z95.2 Presence of prosthetic heart valve; Z79.01 Long term (current) use of anticoagulants
CPT/HCPCS: 10880